=== PATIENT | male | born 1950 | race Two or more races ===

== ENCOUNTER 2019-05-29 09:45 | Emergency (ER) | payer OTHER ==
[~2019-05-29] VITALS: Ht 170.2 cm; Wt 92.1 kg
[2019-05-29] MEDS ORDERED: ASPIRIN81 MG (09:53)
[2019-05-29] MEDS ORDERED: LOSARTAN-HCTZ1 EAC1 (09:53)
== END 2019-05-29 16:12 | disposition home or self-care (01) ==
LOC: ER 09:45 → CPU-OBS 10:14 → ER 10:14
DX: R07.89 Other chest pain (principal)

== ENCOUNTER → 2020-03-08 | Emergency (ER) | payer OTHER ==
[~2020-03-08] VITALS: Ht 165.1 cm; Wt 93.4 kg
[~2020-03-08] MED LIST: ASPIRIN81 MG; LOSARTAN-HCTZ1 EAC1; NEURONTIN300 MG PO; PEPCID AC10 MG PO; SIMVASTATIN5 MG PO
== END | disposition left against medical advice (07) ==
LOC: ER 19:24
DX: R53.83 Other fatigue (principal); R53.1 Weakness

== ENCOUNTER 2020-03-18 11:22 | Outpatient (CLI) | payer OTHER | END 2020-03-18 15:00 | disposition home or self-care (01) | LOC: LAB 11:22 | PROVIDERS: ATTEND Specialist | DX: E56.0 Deficiency of vitamin E (principal); E55.9 Vitamin D deficiency, unspecified; E67.2 Megavitamin-B6 syndrome; D51.0 Vitamin B12 deficiency anemia due to intrinsic factor deficiency ==

== ENCOUNTER 2020-03-25 09:41 | Outpatient (CLI) | payer OTHER | END 2020-03-25 09:46 | disposition home or self-care (01) | LOC: MRI 09:41 | PROVIDERS: ATTEND Specialist | DX: G93.81 Temporal sclerosis (principal); I67.82 Cerebral ischemia | CPT/HCPCS: 70551 ==

== ENCOUNTER → 2020-05-14 | Emergency (ER) | payer OTHER ==
[~2020-05-14] VITALS: Ht 167.6 cm; Wt 127.0 kg
== END | disposition home or self-care (01) ==
LOC: ER 13:07
DX: M51.37 Other intervertebral disc degeneration, lumbosacral region (principal); M54.5 Low back pain; R53.81 Other malaise; N28.1 Cyst of kidney, acquired

== ENCOUNTER 2020-10-24 12:55 | Inpatient (IN) | payer OTHER ==
[~2020-10-24] VITALS: Ht 160 cm; Wt 104.3 kg
[2020-10-24] MEDS ORDERED: HYDROCHLOROTHIA25 MG (13:14)
[2020-10-25] MEDS ORDERED: ALLOPURINOL300 MG (15:10)
[2020-10-25] MEDS ORDERED: GABAPENTIN300 M2 (15:10)
[2020-10-25] MEDS ORDERED: LOSARTAN POTAS100 MG (15:10)
[2020-10-25] MEDS ORDERED: SIMVASTATIN20 MG (15:11)
[2020-10-25] MEDS ORDERED: FAMOTIDINE20 MG (15:11)
== END 2020-11-09 10:02 | disposition home or self-care (01) | DRG 638 ==
LOC: ER 12:55 → SEC-K 20:59 → MEDJ 10-25 14:11
PROVIDERS: ADMIT Internal Medicine Cardiovascular Disease; ATTEND Internal Medicine Cardiovascular Disease
PROC: BW40ZZZ Ultrasonography of Abdomen (ICD-10-PCS; 2020-10-24)
PROC: B54DZZZ Ultrasonography of Bilateral Lower Extremity Veins (ICD-10-PCS; 2020-10-28)
PROC: 0HBLXZZ Excision of Left Lower Leg Skin, External Approach (ICD-10-PCS; principal; 2020-11-05)
DX: E11.628 Type 2 diabetes mellitus with other skin complications (principal); L03.116 Cellulitis of left lower limb; I12.9 Hypertensive chronic kidney disease with stage 1 through stage 4 chronic kidney disease, or unspecified chronic kidney disease; E11.22 Type 2 diabetes mellitus with diabetic chronic kidney disease; N18.30 Chronic kidney disease, stage 3 unspecified; M47.816 Spondylosis without myelopathy or radiculopathy, lumbar region; Z79.84 Long term (current) use of oral hypoglycemic drugs; Z20.822 Contact with and (suspected) exposure to COVID-19

== ENCOUNTER → 2021-02-27 08:24 | Outpatient (CLI) | payer OTHER ==
[~2021-02-27 08:24] MED LIST changes: +ALLOPURINOL300 MG; +FAMOTIDINE20 MG; +GABAPENTIN300 M2; +HYDROCHLOROTHIA25 MG; +LOSARTAN POTAS100 MG; +SIMVASTATIN20 MG
== END | disposition home or self-care (01) ==
LOC: RAD 08:24
PROVIDERS: ATTEND Internal Medicine Cardiovascular Disease
DX: M25.562 Pain in left knee (principal); M25.561 Pain in right knee; M54.5 Low back pain

== ENCOUNTER 2021-03-12 13:44 | Outpatient (CLI) | payer OTHER | END 2021-03-12 13:53 | disposition home or self-care (01) | LOC: SONOGRAMA 13:44 → MAMO-SONO 14:15 | PROVIDERS: ATTEND Internal Medicine Cardiovascular Disease | DX: M25.562 Pain in left knee (principal); M19.91 Primary osteoarthritis, unspecified site ==

== ENCOUNTER 2022-04-21 07:17 | Outpatient (CLI) | payer OTHER | END 2022-04-21 07:26 | disposition home or self-care (01) | LOC: SONOGRAMA 07:17 | PROVIDERS: ATTEND Specialist/Technologist, Other Nephrology | DX: R10.9 Unspecified abdominal pain (principal); R31.9 Hematuria, unspecified; N18.30 Chronic kidney disease, stage 3 unspecified ==

== ENCOUNTER 2022-07-07 08:43 | Outpatient (CLI) | payer OTHER | END 2022-07-07 08:44 | disposition home or self-care (01) | LOC: NUCLEAR 08:43 | PROVIDERS: ATTEND Internal Medicine Cardiovascular Disease | DX: I73.9 Peripheral vascular disease, unspecified (principal) ==

== ENCOUNTER 2022-07-08 08:19 | Outpatient (CLI) | payer OTHER | END 2022-07-08 08:20 | disposition home or self-care (01) | LOC: NUCLEAR 08:19 | PROVIDERS: ATTEND Internal Medicine Cardiovascular Disease | DX: I73.9 Peripheral vascular disease, unspecified (principal) ==

== ENCOUNTER 2022-12-28 14:03 | Emergency (ER) | payer OTHER ==
[~2022-12-28] VITALS: Ht 160 cm; Wt 99.8 kg
== END 2022-12-28 19:01 | disposition home or self-care (01) ==
LOC: ER 14:03
DX: M47.816 Spondylosis without myelopathy or radiculopathy, lumbar region (principal); M51.36 Other intervertebral disc degeneration, lumbar region; I10 Essential (primary) hypertension

== ENCOUNTER 2023-10-21 08:17 | Emergency (ER) | payer OTHER ==
[~2023-10-21] VITALS: Ht 175.3 cm; Wt 86.2 kg
[2023-10-21] MEDS ORDERED: ACETAMINOPHEN 500 MG GEL..CAP PO STA (08:38)
[2023-10-21] MEDS ORDERED: 0.9 % SODIUM CHLORIDE 1,000 ML IV STA (08:39)
[2023-10-21 09:07] LABS: HEMATOCRIT 40.6 % (39.0-48.0); HEMOGLOBIN 13.7 g/dL (13-16.00); MEAN CELL VOLUME 87.9 fL (80.0-100.00); MEAN CORPUSCULAR HEMOGLOBIN 29.7 pg (27.00-32.0); MEAN CORPUSCULAR HGB CONC 33.8 g/dl (32.0-36.0); RED BLOOD COUNT 4.62 M/uL (4.00-6.00); RED CELL DISTRIBUTION WIDTH 14.4 % (11.5-14.5)
[2023-10-21 09:11] LABS: PLATELET COUNT 120 K/uL (150-450)
[2023-10-21 09:27] LABS: CALCIUM 8.7 mg/dL (8.5-10.1); CREATININE SERUM 2.95 mg/dL (0.70-1.30); GFR 21.08; POTASSIUM 4.73 mEq/L (3.5-5.1)
== END 2023-10-21 10:28 | disposition home or self-care (01) ==
LOC: ER 08:17
PROVIDERS: Emergency Medicine
DX: B34.9 Viral infection, unspecified (principal); T50.Z95A Adverse effect of other vaccines and biological substances, initial encounter; R53.81 Other malaise
CPT/HCPCS: 36415; 71046; 96365; 99282; J7030

== ENCOUNTER 2025-08-03 14:39 | Emergency (ER) | payer OTHER ==
[~2025-08-03] VITALS: Ht 167.6 cm; Wt 95.3 kg
[2025-08-03 21:58] LABS: BASO % 0.5 % (0.1-1.2); EOS # 0.27 (0.04-0.54); EOS % 2.6 % (0.7-7.0); LYMPH # 2.46 (1.18-3.74); LYMPH % 23.6 % (19.3-53.1); MEAN PLATELET VOLUME 10.90 fl (9.4-12.4); MONO # 0.72 (0.24-0.82); MONO % 6.9 % (4.7-12.5); NEUT # 6.91 (1.56-6.13); NEUT % 66.1 % (34.0-71.1); RED CELL DISTRIBUTION WIDTH 13.9 % (11.6-14.4)
[2025-08-03 22:09] LABS: INR 0.98
[2025-08-03 22:12] LABS: ALT/SGPT 17.0 U/L (12-78); AST/SGOT 14.0 U/L (15-37); BILIRUBIN TOTAL 0.53 mg/dL (0.3-1.2); BUN CREA RATIO 15.0 (7.0-25.0); CREATININE SERUM 2.31 mg/dL (0.70-1.30); GFR 27.8; GLOBULINA 3.4 G/DL (2.4-3.5); GLUCOSE FASTING 92.0 mg/dL (65-100); OSMOLALITY SERUM 298.0 MOSM/KG (275-295)
[2025-08-03 22:21] LABS: ERYTHROCYTE SEDIMENTATION RATE 24 mm/hr (0-20)
[2025-08-03] MEDS ORDERED: 0.9 % SODIUM CHLORIDE 1,000 ML IV STA (22:25)
[2025-08-03 23:20] LABS: COVID-19 AG NEGATIVE (NEGATIVE)
[2025-08-03 23:28] LABS: URINE APPEARANCE Clear; URINE BILIRRUBIN Negative (NEGATIVE); URINE BLOOD Negative; URINE COLOR Yellow; URINE GLUCOSE Negative (NEGATIVE); URINE KETONE Negative (NEGATIVE); URINE LEUKOCYTE Negative; URINE NITRATE Negative; URINE PROTEIN 30 (NEGATIVE); URINE UROBILINOGEN 1.0 E.U./dl
[2025-08-03 23:33] LABS: URINE BACTERIA 25.1 uL (0.0-1933); URINE EPITHELIAL CELLS 3.3 uL (0.0-38.8); URINE WBC 3.3 uL (0.0-23.2)
[2025-08-03 23:42] LABS: URINE CAST 0.14 uL (0.0-1.40); URINE RBC 0.9 uL (0.0-20.8)
[2025-08-04] MEDS ORDERED: CALCIUM GLUCONATE 100 MG/ML VIAL IV STA (00:37)
[2025-08-04] MEDS ORDERED: 0.9 % SODIUM CHLORIDE 1,000 ML IV STA (00:37)
[2025-08-04] MEDS ORDERED: INSULIN REGULAR, HUMAN 1,000 UNIT/10 ML UNITS IV STA (00:38)
[2025-08-04] MEDS ORDERED: DEXTROSE 50 % IN WATER 0.5 G/ML VIAL IV STA (00:38)
[2025-08-04] MEDS ORDERED: DEXTROSE 50 % IN WATER 0.5 G/ML DISP.SYRIN IV ONE (01:46)
[2025-08-04] MEDS ORDERED: CALCIUM GLUCONATE 100 MG/ML VIAL ONE (01:46)
[2025-08-04 03:27] LABS: BUN CREA RATIO 15.0 (7.0-25.0); CREATININE SERUM 2.28 mg/dL (0.70-1.30); GFR 28.22; GLUCOSE FASTING 136.0 mg/dL (65-100); OSMOLALITY SERUM 299.0 MOSM/KG (275-295)
[2025-08-04] MEDS ORDERED: ALBUTEROL SULFATE 3 ML/2.5 MG AMPUL.NEB IH SCH (04:00)
[2025-08-04 05:22] LABS: BUN CREA RATIO 15.0 (7.0-25.0); CREATININE SERUM 2.19 mg/dL (0.70-1.30); GFR 29.56; GLUCOSE FASTING 79.0 mg/dL (65-100); OSMOLALITY SERUM 299.0 MOSM/KG (275-295)
== END 2025-08-04 06:21 | disposition home or self-care (01) ==
LOC: ER 14:40
PROVIDERS: General Practice; Physician Assistant Medical
DX: J06.9 Acute upper respiratory infection, unspecified (principal); I12.9 Hypertensive chronic kidney disease with stage 1 through stage 4 chronic kidney disease, or unspecified chronic kidney disease; N18.9 Chronic kidney disease, unspecified; E87.5 Hyperkalemia; Z20.822 Contact with and (suspected) exposure to COVID-19
CPT/HCPCS: 36415; 71046; 96365; 96366; 99283; J3490; J7030